=== PATIENT | female | born 1950 | race African-American/Black ===

== ENCOUNTER 2021-04-15 13:14 | Inpatient (IN) ==
[2021-04-15] MEDS ORDERED: SODIUM CHLORIDE 0.9% 1,000 ML IV STA (13:24)
[2021-04-15 13:41] LABS: Basophils % 0.1 % (0.0-0.8); Eosinophils # 0.2 10*3/uL (0.0-0.87); Eosinophils % 0.8 % (0.00-10.9); Hematocrit 26.5 VOL% (35.7-47.0); Hemoglobin 8.1 GM/DL (12.0-16.0); Immature Granulocytes % 1.1 %; Immature Granulocytes Absolute 0.23 #; Lymphocytes # 2.4 10*3/uL (1.4-4.0); Lymphocytes % 11.6 % (21.3-54.2); Mean Corpuscular HGB Conc 30.6 GM/DL (32-36); Mean Corpuscular Volume 71.2 FL (87-102); Mean Platelet Volume 11.8 FL (9.6-12.0); Monocytes % 6.5 % (1.7-12.7); Neutrophils % 79.9 % (38.7-73.9); Platelet Count 450 T/CUMM (130-400); Red Blood Count 3.72 MC/CUMM (3.8-5.5); Red Cell Distribution Width 18.1 % (9.3-17.3); White Blood Count 20.6 T/CUMM (4-12)
[2021-04-15 14:13] LABS: Calcium 6.3 MG/DL (8.5-10.1)
[2021-04-15 14:16] LABS: Potassium 2.3 MMOL/L (3.5-5.1)
[2021-04-15 14:20] LABS: Lymphocytes 13 % (20-55); Segmented Neutrophils 79 % (50-85); Total Cells Counted 100
[2021-04-15 14:21] LABS: Anisocytosis 1+; Hypochromia 1+; Target Cells 1+
[2021-04-15 14:22] LABS: Platelet Estimate Adequate; Polychromasia 1+; Schistocytes Few
[2021-04-15] MEDS ORDERED: POTASSIUM CHLORIDE 20 MEQ TABLET PO STA (14:30)
[2021-04-15] MEDS ORDERED: GLUCAGON 1 MG VIAL IM PRN (15:46)
[2021-04-15] MEDS ORDERED: ACETAMINOPHEN 325 MG TABLET PO PRN (15:46)
[2021-04-15] MEDS ORDERED: DEXTROSE 50% 25 GM/50 ML SYRINGE IV PRN (15:46)
[2021-04-15 17:04] LABS: % Iron Saturation 11.9 % (18-50)
[2021-04-15 17:20] LABS: Bacteria,Urine Many /HPF (Few); Bilirubin,Urine Negative (Negative); Blood, Urine Moderate mg/dL (Negative); Glucose,Urine (UA) Negative (Negative); Hyaline Casts,Urine 1 /LPF (0-3); Ketones,Urine Negative (Negative); Mucus,Urine Occasional /LPF (Occasional); Nitrite,Urine Negative (Negative); Protein,Urine 30 MG/DL; RBC,Urine 4 /HPF (0-4); Squamous Epithelial Cell,Urine Few /HPF (0-10); Urine Appearance CLOUDY (Clear); Urine Color Yellow (Yellow); Urine Specific Gravity 1.006 (1.001-1.035); Urine Urobilinogen < 2.0 EU/DL (<2.0)
[2021-04-15] MEDS ORDERED: POTASSIUM CHLORIDE 20 MEQ TABLET PO ONE (17:30)
[2021-04-15] MEDS: INSULIN LISPRO 100 UNIT/ML SUBCUT SCH (20:16)
[2021-04-15] MEDS: [UNRECOGNIZED DRUG - OTHER] IV SCH (21:51)
[2021-04-15] MEDS: POTASSIUM CHLORIDE IV SCH (21:51)
[2021-04-15] MEDS: SODIUM BICARB IV SCH (21:51)
[2021-04-15] MEDS: metroNIDAZOLE INJ 500 MG/100 ML PREMIX IV SCH (21:52)
[2021-04-16] MEDS: metroNIDAZOLE INJ 500 MG/100 ML PREMIX IV SCH ×3 (03:39→17:29)
[2021-04-16] MEDS: SODIUM BICARB IV SCH ×2 (03:40→13:00)
[2021-04-16] MEDS: POTASSIUM CHLORIDE IV SCH ×2 (03:40→13:00)
[2021-04-16] MEDS: [UNRECOGNIZED DRUG - OTHER] IV SCH ×2 (03:40→13:00)
[2021-04-16] MEDS: ONDANSETRON 4 MG/2 ML VIAL IV PRN ×2 (04:23→20:08)
[2021-04-16 05:47] LABS: Basophils % 0.2 % (0.0-0.8); Eosinophils # 0.1 10*3/uL (0.0-0.87); Eosinophils % 0.5 % (0.00-10.9); Hemoglobin 7.3 GM/DL (12.0-16.0); Immature Granulocytes % 1.4 %; Immature Granulocytes Absolute 0.26 #; Lymphocytes # 2.2 10*3/uL (1.4-4.0); Lymphocytes % 11.3 % (21.3-54.2); Mean Corpuscular HGB Conc 30.4 GM/DL (32-36); Mean Corpuscular Volume 71.9 FL (87-102); Monocytes % 6.8 % (1.7-12.7); Neutrophils % 79.8 % (38.7-73.9); Platelet Count 360 T/CUMM (130-400); Red Blood Count 3.34 MC/CUMM (3.8-5.5); Red Cell Distribution Width 18.1 % (9.3-17.3); White Blood Count 19.1 T/CUMM (4-12)
[2021-04-16 06:03] LABS: Calcium 6.5 MG/DL (8.5-10.1); Osmolality,Calculated 293.5 MOS/KG (273-304); Potassium 2.7 MMOL/L (3.5-5.1)
[2021-04-16] MEDS ORDERED: POTASSIUM BICARB EFFERVESCENT 20 MEQ TAB.EFF PO ONE ×2 (07:30→16:34)
[2021-04-16] MEDS ORDERED: MAGNESIUM SULF RIDER 4 GM/100 ML PREMIX IV ONE (07:30)
[2021-04-16] MEDS ORDERED: PROMETHAZINE 25 MG TABLET PO PRN (07:36)
[2021-04-16] MEDS ORDERED: ALBUTEROL 2.5 MG/3 ML NEB RESP TX PRN (07:36)
[2021-04-16] MEDS ORDERED: traMADol 50 MG TABLET PO PRN (07:36)
[2021-04-16] MEDS ORDERED: FERROUS SULFATE 325 MG TABLET PO SCH (08:00)
[2021-04-16] MEDS ORDERED: DEXTROSE 10% 250 ML BAG IV PRN (09:00)
[2021-04-16] MEDS ORDERED: GABAPENTIN 300 MG CAPSULE PO SCH (09:00)
[2021-04-16] MEDS ORDERED: ERGOCALCIFEROL 50,000 UNIT CAPSULE PO SCH (09:00)
[2021-04-16] MEDS: carvediloL 12.5 MG TABLET PO SCH ×2 (09:59→16:14)
[2021-04-16] MEDS: MAGNESIUM CHLORIDE 64 MG TABLET PO SCH ×3 (09:59→21:15)
[2021-04-16] MEDS: COLESTIPOL 1 GM TABLET PO SCH ×2 (09:59→21:16)
[2021-04-16] MEDS: GABAPENTIN 100 MG CAPSULE PO SCH ×2 (09:59→21:15)
[2021-04-16] MEDS: allopurinoL 300 MG TABLET PO SCH (09:59)
[2021-04-16] MEDS: PANTOPRAZOLE 40 MG VIAL IV SCH (10:00)
[2021-04-16] MEDS: ISOSORBIDE MONONITRATE 60 MG TABLET PO SCH (10:00)
[2021-04-16] MEDS ORDERED: SODIUM CHLORIDE 0.9% 1,000 ML IV PRN (10:11)
[2021-04-16] MEDS: INSULIN LISPRO 100 UNIT/ML SUBCUT SCH ×4 (10:52→21:17)
[2021-04-16] MEDS ORDERED: PROMETHAZINE 25 MG TABLET PO ONE (11:20)
[2021-04-16] MEDS: AZTREONAM 500 MG in SODIUM CHLORIDE 0.9% 100 ML IV SCH ×2 (12:25→16:14)
[2021-04-16] MEDS ORDERED: hydrALAZINE 20 MG/1 ML VIAL IV PRN (14:26)
[2021-04-16] MEDS: AMITRIPTYLINE 50 MG TABLET PO SCH (21:15)
[2021-04-16] MEDS: SIMVASTATIN 20 MG TABLET PO SCH (21:16)
[2021-04-17] MEDS: [UNRECOGNIZED DRUG - OTHER] IV SCH ×3 (01:37→21:09)
[2021-04-17] MEDS: POTASSIUM CHLORIDE IV SCH ×3 (01:37→21:09)
[2021-04-17] MEDS: SODIUM BICARB IV SCH ×3 (01:37→21:09)
[2021-04-17] MEDS: AZTREONAM 500 MG in SODIUM CHLORIDE 0.9% 100 ML IV SCH ×4 (01:38→23:54)
[2021-04-17] MEDS: ONDANSETRON 4 MG/2 ML VIAL IV PRN ×2 (02:04→21:01)
[2021-04-17] MEDS: metroNIDAZOLE INJ 500 MG/100 ML PREMIX IV SCH ×3 (02:04→20:42)
[2021-04-17 06:12] LABS: Basophils % 0.2 % (0.0-0.8); Eosinophils # 0.2 10*3/uL (0.0-0.87); Eosinophils % 1.5 % (0.00-10.9); Hematocrit 21.2 VOL% (35.7-47.0); Hemoglobin 6.5 GM/DL (12.0-16.0); Immature Granulocytes % 0.9 %; Immature Granulocytes Absolute 0.12 #; Lymphocytes # 1.8 10*3/uL (1.4-4.0); Lymphocytes % 13.8 % (21.3-54.2); Mean Corpuscular HGB Conc 30.7 GM/DL (32-36); Mean Corpuscular Volume 71.1 FL (87-102); Monocytes % 7.3 % (1.7-12.7); Neutrophils % 76.3 % (38.7-73.9); Platelet Count 320 T/CUMM (130-400); Red Blood Count 2.98 MC/CUMM (3.8-5.5); White Blood Count 13.1 T/CUMM (4-12)
[2021-04-17 06:33] LABS: Hypochromia 2+; Microcytosis 1+; Platelet Estimate Normal; Target Cells Few
[2021-04-17 06:36] LABS: Calcium 6.5 MG/DL (8.5-10.1); Osmolality,Calculated 291.1 MOS/KG (273-304); Potassium 3.3 MMOL/L (3.5-5.1)
[2021-04-17] MEDS ORDERED: hydrALAZINE 20 MG/1 ML VIAL IV ONE (08:10)
[2021-04-17] MEDS: INSULIN LISPRO 100 UNIT/ML SUBCUT SCH ×4 (08:10→20:57)
[2021-04-17] MEDS ORDERED: POTASSIUM BICARB EFFERVESCENT 20 MEQ TAB.EFF PO ONE (08:15)
[2021-04-17] MEDS ORDERED: MAGNESIUM SULF RIDER 2 GM/50 ML PREMIX IV ONE (08:30)
[2021-04-17] MEDS ORDERED: propofoL 200 MG/20 ML VIAL IV ONE (09:06)
[2021-04-17] MEDS ORDERED: LIDOCAINE 2% 5 ML VIAL ONE (09:06)
[2021-04-17] MEDS: LACTATED RINGERS 1,000 ML IV SCH (09:47)
[2021-04-17] MEDS ORDERED: LACTATED RINGERS 1,000 ML IV SCH (10:00)
[2021-04-17] MEDS: allopurinoL 300 MG TABLET PO SCH (10:33)
[2021-04-17] MEDS: ISOSORBIDE MONONITRATE 60 MG TABLET PO SCH (10:33)
[2021-04-17] MEDS: MAGNESIUM CHLORIDE 64 MG TABLET PO SCH ×3 (10:33→20:56)
[2021-04-17] MEDS: carvediloL 12.5 MG TABLET PO SCH ×2 (10:33→17:04)
[2021-04-17] MEDS: GABAPENTIN 100 MG CAPSULE PO SCH ×2 (10:33→20:56)
[2021-04-17] MEDS: COLESTIPOL 1 GM TABLET PO SCH ×2 (10:34→20:58)
[2021-04-17] MEDS: PANTOPRAZOLE 40 MG VIAL IV SCH (11:42)
[2021-04-17] MEDS ORDERED: SODIUM CHLORIDE 0.9% 1,000 ML IV PRN (12:15)
[2021-04-17] MEDS: FERRIC GLUCONATE COMPLEX 125 MG in SODIUM CHLORIDE 0.9% 100 ML IV SCH (12:50)
[2021-04-17] MEDS: SIMVASTATIN 20 MG TABLET PO SCH (20:54)
[2021-04-17] MEDS: AMITRIPTYLINE 50 MG TABLET PO SCH (23:24)
[2021-04-18] MEDS: metroNIDAZOLE INJ 500 MG/100 ML PREMIX IV SCH ×3 (00:53→17:01)
[2021-04-18] MEDS: ONDANSETRON 4 MG/2 ML VIAL IV PRN ×2 (01:58→23:31)
[2021-04-18 06:37] LABS: Basophils % 0.1 % (0.0-0.8); Eosinophils # 0.2 10*3/uL (0.0-0.87); Eosinophils % 1.7 % (0.00-10.9); Hematocrit 29.3 VOL% (35.7-47.0); Hemoglobin 9.2 GM/DL (12.0-16.0); Immature Granulocytes % 0.9 %; Immature Granulocytes Absolute 0.12 #; Lymphocytes # 2.1 10*3/uL (1.4-4.0); Lymphocytes % 15.8 % (21.3-54.2); Mean Corpuscular HGB Conc 31.4 GM/DL (32-36); Mean Corpuscular Volume 74.9 FL (87-102); Monocytes % 7.5 % (1.7-12.7); Platelet Count 291 T/CUMM (130-400); Red Blood Count 3.91 MC/CUMM (3.8-5.5); Red Cell Distribution Width 18.6 % (9.3-17.3); White Blood Count 13.6 T/CUMM (4-12)
[2021-04-18 06:44] LABS: Calcium 7.7 MG/DL (8.5-10.1); Osmolality,Calculated 286.4 MOS/KG (273-304); Potassium 3.8 MMOL/L (3.5-5.1)
[2021-04-18 07:00] LABS: Anisocytosis 2+; Hypochromia Slight; Platelet Estimate Normal; Target Cells Few
[2021-04-18 07:01] LABS: Helmet Cells Few; Poikilocytosis Slight
[2021-04-18] MEDS: SODIUM BICARB IV SCH ×2 (07:25→23:37)
[2021-04-18] MEDS: POTASSIUM CHLORIDE IV SCH ×2 (07:25→23:37)
[2021-04-18] MEDS: [UNRECOGNIZED DRUG - OTHER] IV SCH ×2 (07:25→23:37)
[2021-04-18] MEDS: INSULIN LISPRO 100 UNIT/ML SUBCUT SCH ×4 (07:55→21:54)
[2021-04-18] MEDS: AZTREONAM 500 MG in SODIUM CHLORIDE 0.9% 100 ML IV SCH ×3 (08:03→23:37)
[2021-04-18] MEDS ORDERED: MAGNESIUM SULF RIDER 2 GM/50 ML PREMIX IV ONE (08:17)
[2021-04-18] MEDS: GABAPENTIN 100 MG CAPSULE PO SCH ×2 (08:42→21:55)
[2021-04-18] MEDS: allopurinoL 300 MG TABLET PO SCH (08:42)
[2021-04-18] MEDS: carvediloL 12.5 MG TABLET PO SCH ×2 (08:42→17:03)
[2021-04-18] MEDS: MAGNESIUM CHLORIDE 64 MG TABLET PO SCH ×3 (08:42→21:55)
[2021-04-18] MEDS: ISOSORBIDE MONONITRATE 60 MG TABLET PO SCH (08:42)
[2021-04-18] MEDS: FERRIC GLUCONATE COMPLEX 125 MG in SODIUM CHLORIDE 0.9% 100 ML IV SCH (08:44)
[2021-04-18] MEDS: PANTOPRAZOLE 40 MG VIAL IV SCH (08:44)
[2021-04-18] MEDS: LACTATED RINGERS 1,000 ML IV SCH (11:15)
[2021-04-18] MEDS: COLESTIPOL 1 GM TABLET PO SCH ×2 (13:01→21:55)
[2021-04-18] MEDS: SIMVASTATIN 20 MG TABLET PO SCH (21:55)
[2021-04-18] MEDS: AMITRIPTYLINE 50 MG TABLET PO SCH (22:02)
[2021-04-19] MEDS: metroNIDAZOLE INJ 500 MG/100 ML PREMIX IV SCH ×3 (00:44→16:45)
[2021-04-19] MEDS: SODIUM BICARB IV SCH (03:26)
[2021-04-19] MEDS: [UNRECOGNIZED DRUG - OTHER] IV SCH (03:26)
[2021-04-19] MEDS: POTASSIUM CHLORIDE IV SCH (03:26)
[2021-04-19] MEDS: VANCOMYCIN 50 MG/ML 60 ML/BOTTLE PO SCH ×4 (06:13→23:39)
[2021-04-19 07:15] LABS: Basophils % 0.2 % (0.0-0.8); Eosinophils # 0.3 10*3/uL (0.0-0.87); Hematocrit 29.5 VOL% (35.7-47.0); Hemoglobin 9.2 GM/DL (12.0-16.0); Immature Granulocytes Absolute 0.12 #; Lymphocytes # 2.4 10*3/uL (1.4-4.0); Lymphocytes % 19.7 % (21.3-54.2); Mean Corpuscular HGB Conc 31.2 GM/DL (32-36); Mean Corpuscular Volume 75.8 FL (87-102); Mean Platelet Volume 11.7 FL (9.6-12.0); Monocytes % 8.3 % (1.7-12.7); Neutrophils % 68.8 % (38.7-73.9); Platelet Count 334 T/CUMM (130-400); Red Blood Count 3.89 MC/CUMM (3.8-5.5); White Blood Count 12.3 T/CUMM (4-12)
[2021-04-19 07:40] LABS: Calcium 7.3 MG/DL (8.5-10.1); Osmolality,Calculated 286.3 MOS/KG (273-304); Potassium 4.1 MMOL/L (3.5-5.1)
[2021-04-19] MEDS: INSULIN LISPRO 100 UNIT/ML SUBCUT SCH ×4 (08:18→22:41)
[2021-04-19] MEDS: carvediloL 12.5 MG TABLET PO SCH ×2 (08:19→16:45)
[2021-04-19] MEDS: COLESTIPOL 1 GM TABLET PO SCH ×2 (08:19→22:41)
[2021-04-19] MEDS: allopurinoL 300 MG TABLET PO SCH (08:19)
[2021-04-19] MEDS: GABAPENTIN 100 MG CAPSULE PO SCH ×2 (08:19→21:39)
[2021-04-19] MEDS: MAGNESIUM CHLORIDE 64 MG TABLET PO SCH ×3 (08:19→21:39)
[2021-04-19] MEDS: ISOSORBIDE MONONITRATE 60 MG TABLET PO SCH (08:19)
[2021-04-19] MEDS: AZTREONAM 500 MG in SODIUM CHLORIDE 0.9% 100 ML IV SCH (08:19)
[2021-04-19] MEDS: PANTOPRAZOLE 40 MG VIAL IV SCH (08:20)
[2021-04-19] MEDS ORDERED: MAGNESIUM SULF RIDER 4 GM/100 ML PREMIX IV ONE (08:22)
[2021-04-19] MEDS: LACTATED RINGERS 1,000 ML IV SCH (11:17)
[2021-04-19] MEDS: FERRIC GLUCONATE COMPLEX 125 MG in SODIUM CHLORIDE 0.9% 100 ML IV SCH (11:17)
[2021-04-19] MEDS ORDERED: cefTRIAXone 1,000 MG in SODIUM CHLORIDE 0.9% 100 ML IV SCH (11:30)
[2021-04-19] MEDS: SIMVASTATIN 20 MG TABLET PO SCH (21:39)
[2021-04-19] MEDS: cephALEXin 500 MG CAPSULE PO SCH (21:39)
[2021-04-19] MEDS: AMITRIPTYLINE 50 MG TABLET PO SCH (21:39)
[2021-04-20] MEDS: metroNIDAZOLE INJ 500 MG/100 ML PREMIX IV SCH ×2 (01:20→08:43)
[2021-04-20] MEDS: ONDANSETRON 4 MG/2 ML VIAL IV PRN (02:34)
[2021-04-20] MEDS: VANCOMYCIN 50 MG/ML 60 ML/BOTTLE PO SCH ×2 (06:32→11:51)
[2021-04-20 06:40] LABS: Basophils % 0.2 % (0.0-0.8); Eosinophils # 0.2 10*3/uL (0.0-0.87); Hematocrit 31.4 VOL% (35.7-47.0); Hemoglobin 9.5 GM/DL (12.0-16.0); Immature Granulocytes % 0.8 %; Immature Granulocytes Absolute 0.09 #; Lymphocytes # 2.4 10*3/uL (1.4-4.0); Lymphocytes % 20.4 % (21.3-54.2); Mean Corpuscular HGB Conc 30.3 GM/DL (32-36); Mean Corpuscular Volume 77.7 FL (87-102); Monocytes % 6.3 % (1.7-12.7); Neutrophils % 70.3 % (38.7-73.9); Platelet Count 252 T/CUMM (130-400); Red Blood Count 4.04 MC/CUMM (3.8-5.5); White Blood Count 11.7 T/CUMM (4-12)
[2021-04-20] MEDS: MAGNESIUM CHLORIDE 64 MG TABLET PO SCH (08:44)
[2021-04-20] MEDS: INSULIN LISPRO 100 UNIT/ML SUBCUT SCH ×2 (08:44→11:51)
[2021-04-20] MEDS: allopurinoL 300 MG TABLET PO SCH (08:44)
[2021-04-20] MEDS: cephALEXin 500 MG CAPSULE PO SCH (08:44)
[2021-04-20] MEDS: GABAPENTIN 100 MG CAPSULE PO SCH (08:44)
[2021-04-20] MEDS: carvediloL 12.5 MG TABLET PO SCH (08:44)
[2021-04-20] MEDS: ISOSORBIDE MONONITRATE 60 MG TABLET PO SCH (08:44)
[2021-04-20] MEDS: PANTOPRAZOLE 40 MG VIAL IV SCH (08:44)
[2021-04-20] MEDS: FERRIC GLUCONATE COMPLEX 125 MG in SODIUM CHLORIDE 0.9% 100 ML IV SCH (09:49)
[2021-04-20] MEDS: LACTATED RINGERS 1,000 ML IV SCH (09:50)
[2021-04-20 10:02] LABS: Tissue Transglutaminase IgA Ab 1.4 U/mL
[2021-04-20 11:22] VITALS: BP 175/80
[2021-04-20] MEDS: COLESTIPOL 1 GM TABLET PO SCH (11:56)
[2021-04-20 21:08] LABS: IgA Serum (MAYO) 439 mg/dL (61 - 356)
== END 2021-04-20 13:46 | disposition home health service (06) | DRG 683 ==
LOC: N.ED 13:14 → SUATTDRO 15:24 → N.EDINP 15:24 → N.3E 17:39
PROVIDERS: ADMIT Internal Medicine; ATTEND Internal Medicine

== ENCOUNTER 2021-12-11 09:52 | Observation (INO) ==
[2021-12-11 11:10] LABS: Basophils % 0.1 % (0.0-0.8); Eosinophils # 0.2 10*3/uL (0.0-0.87); Eosinophils % 3.5 % (0.00-10.9); Hematocrit 22.9 VOL% (35.7-47.0); Hemoglobin 6.5 GM/DL (12.0-16.0); Immature Granulocytes % 0.9 %; Immature Granulocytes Absolute 0.06 #; Lymphocytes # 2.1 10*3/uL (1.4-4.0); Lymphocytes % 30.8 % (21.3-54.2); Mean Corpuscular HGB Conc 28.4 GM/DL (32-36); Mean Corpuscular Volume 78.2 FL (87-102); Mean Platelet Volume 12.4 FL (9.6-12.0); Monocytes # 0.6 10*3/uL (0.11-0.8); Neutrophils % 56.7 % (38.7-73.9); Platelet Count 233 T/CUMM (130-400); Red Blood Count 2.93 MC/CUMM (3.8-5.5); White Blood Count 6.9 T/CUMM (4-12)
[2021-12-11 11:40] LABS: Hypochromia 1+; Platelet Estimate Adequate
[2021-12-11 11:41] LABS: Anisocytosis Slight; Microcytosis Slight
[2021-12-11] MEDS ORDERED: SODIUM CHLORIDE 0.9% 1,000 ML IV PRN (13:46)
[2021-12-11] MEDS ORDERED: PANTOPRAZOLE 40 MG VIAL IV SCH (14:00)
[2021-12-11] MEDS ORDERED: amLODIPine 5 MG TABLET PO SCH (14:00)
[2021-12-11 14:29] LABS: % Iron Saturation 41.4 % (18-50); Ferritin 916.5 ng/mL (8-252)
[2021-12-11] MEDS ORDERED: hydrALAZINE 20 MG/1 ML VIAL IV PRN (16:16)
[2021-12-11] MEDS ORDERED: CETIRIZINE 10 MG TABLET PO PRN (17:22)
[2021-12-11] MEDS: CETIRIZINE 10 MG TABLET PO SCH (18:27)
[2021-12-11] MEDS: DEXAMETHASONE 0.5 MG TABLET PO SCH ×2 (18:27→18:40)
[2021-12-11] MEDS ORDERED: SODIUM CHLORIDE 0.65% NASAL SPRAY 45 ML BOTTLE BOTH NARES PRN (20:26)
[2021-12-11] MEDS ORDERED: FAMOTIDINE 20 MG TABLET PO SCH (21:00)
[2021-12-11] MEDS ORDERED: traMADol 50 MG TABLET PO PRN (21:28)
[2021-12-11] MEDS: ASCORBIC ACID 500 MG TABLET PO SCH (21:44)
[2021-12-11 21:50] LABS: Calcium 6.5 MG/DL (8.5-10.1); Osmolality,Calculated 291.3 MOS/KG (273-304); Potassium 3.9 MMOL/L (3.5-5.1)
[2021-12-12 06:47] LABS: Basophils % 0.1 % (0.0-0.8); Eosinophils # 0.2 10*3/uL (0.0-0.87); Eosinophils % 2.5 % (0.00-10.9); Hematocrit 36.8 VOL% (35.7-47.0); Hemoglobin 11.3 GM/DL (12.0-16.0); Immature Granulocytes % 0.8 %; Immature Granulocytes Absolute 0.07 #; Lymphocytes # 1.9 10*3/uL (1.4-4.0); Lymphocytes % 22.5 % (21.3-54.2); Mean Corpuscular HGB Conc 30.7 GM/DL (32-36); Mean Corpuscular Volume 78.1 FL (87-102); Mean Platelet Volume 10.8 FL (9.6-12.0); Monocytes # 0.8 10*3/uL (0.11-0.8); Monocytes % 9.2 % (1.7-12.7); Neutrophils % 64.9 % (38.7-73.9); Platelet Count 232 T/CUMM (130-400); Red Blood Count 4.71 MC/CUMM (3.8-5.5); Red Cell Distribution Width 17.6 % (9.3-17.3); White Blood Count 8.4 T/CUMM (4-12)
[2021-12-12] MEDS: ASCORBIC ACID 500 MG TABLET PO SCH (08:24)
[2021-12-12] MEDS: CETIRIZINE 10 MG TABLET PO SCH (08:25)
[2021-12-12] MEDS ORDERED: ZINC SULFATE 220 MG CAPSULE PO SCH (09:00)
[2021-12-12] MEDS ORDERED: cloNIDine 0.1 MG TABLET PO SCH ×2 (09:00→15:00)
[2021-12-12] MEDS ORDERED: ISOSORBIDE MONONITRATE 60 MG TABLET PO SCH ×2 (09:00→10:30)
[2021-12-12] MEDS ORDERED: amLODIPine 10 MG TABLET PO SCH (09:00)
[2021-12-12] MEDS ORDERED: DEXAMETHASONE 4 MG TABLET PO SCH (09:00)
[2021-12-12] MEDS ORDERED: CHOLECALCIFEROL 5,000 UNIT TABLET PO SCH (09:00)
[2021-12-12] MEDS ORDERED: traMADol 50 MG TABLET PO PRN (10:09)
[2021-12-12] MEDS ORDERED: hydroCHLOROthiazide 12.5 MG CAPSULE PO SCH (10:30)
[2021-12-12] MEDS ORDERED: BRIMONIDINE/TIMOLOL OPH SOLN 5 ML BOTTLE BOTH EYES SCH (10:30)
[2021-12-12] MEDS ORDERED: carvediloL 25 MG TABLET PO SCH (10:30)
[2021-12-12 11:34] VITALS: BP 148/84
[2021-12-12] MEDS ORDERED: COLESTIPOL 1 GM TABLET PO SCH (13:00)
[2021-12-12] MEDS ORDERED: hydrALAZINE 25 MG TABLET PO SCH (15:00)
[2021-12-12] MEDS ORDERED: MAGNESIUM CHLORIDE 64 MG TABLET PO SCH (15:00)
[2021-12-12] MEDS ORDERED: GABAPENTIN 300 MG CAPSULE PO SCH (21:00)
[2021-12-12] MEDS ORDERED: SIMVASTATIN 20 MG TABLET PO SCH (21:00)
[2021-12-12] MEDS ORDERED: AMITRIPTYLINE 25 MG TABLET PO SCH (21:00)
[2021-12-13] MEDS ORDERED: allopurinoL 300 MG TABLET PO SCH (09:00)
[2021-12-13] MEDS ORDERED: FERROUS SULFATE 325 MG TABLET PO SCH (09:00)
[2022-01-02] MEDS ORDERED: CYANOCOBALAMIN 1000 MCG/1 ML VIAL IM SCH (09:00)
== END 2021-12-12 14:30 | disposition home health service (06) ==
LOC: N.ED 09:52 → N.EDINP 09:52 → N.2W 15:14 → N.3E 18:19
PROVIDERS: ADMIT Internal Medicine; ATTEND Internal Medicine

== ENCOUNTER 2021-12-23 21:12 | Inpatient (IN) ==
[2021-12-23 21:52] LABS: Basophils % 0.2 % (0.0-0.8); Eosinophils # 0.1 10*3/uL (0.0-0.87); Hematocrit 31.4 VOL% (35.7-47.0); Hemoglobin 9.4 GM/DL (12.0-16.0); Immature Granulocytes % 1.7 %; Immature Granulocytes Absolute 0.24 #; Lymphocytes % 14.3 % (21.3-54.2); Mean Corpuscular HGB Conc 29.9 GM/DL (32-36); Mean Corpuscular Volume 80.9 FL (87-102); Monocytes # 1.3 10*3/uL (0.11-0.8); Monocytes % 9.3 % (1.7-12.7); Neutrophils % 73.5 % (38.7-73.9); Platelet Count 291 T/CUMM (130-400); Red Blood Count 3.88 MC/CUMM (3.8-5.5); Red Cell Distribution Width 18.3 % (9.3-17.3)
[2021-12-23 22:10] LABS: Albumin 2.6 G/DL (3.4-5.0); Bilirubin,Total 0.4 MG/DL (0.20-1.00); Calcium 6.4 MG/DL (8.5-10.1); Osmolality,Calculated 305.4 MOS/KG (273-304); Total Protein 7.9 G/DL (6.4-8.2)
[2021-12-24] MEDS ORDERED: methylPREDNISolone SOD SUC 125 MG/2 ML VIAL IV STA (01:00)
[2021-12-24] MEDS ORDERED: SODIUM CHLORIDE 0.9% 500 ML IV STA (01:00)
[2021-12-24] MEDS ORDERED: ASPIRIN 325 MG TABLET PO STA (01:00)
[2021-12-24] MEDS ORDERED: ONDANSETRON 4 MG/2 ML VIAL IV STA (01:00)
[2021-12-24] MEDS ORDERED: ALBUTEROL/IPRATROPIUM 3 ML NEB RESP TX STA (01:00)
[2021-12-24] MEDS ORDERED: MAGNESIUM SULF RIDER 2 GM/50 ML PREMIX IV STA (02:00)
[2021-12-24] MEDS ORDERED: DEXTROSE 50% 25 GM/50 ML VIAL IV PRN (03:03)
[2021-12-24] MEDS ORDERED: GLUCAGON 1 MG VIAL IM PRN (03:03)
[2021-12-24] MEDS ORDERED: ONDANSETRON 4 MG/2 ML VIAL IV PRN (03:03)
[2021-12-24] MEDS ORDERED: DEXTROSE 10% 250 ML BAG IV PRN (03:03)
[2021-12-24] MEDS ORDERED: SODIUM BICARB INJ 50 MEQ in SODIUM CHLORIDE 0.45% 1,000 ML IV SCH (03:30)
[2021-12-24] MEDS ORDERED: SODIUM BICARBONATE 50 MEQ/50 ML VIAL IV ONE (08:20)
[2021-12-24] MEDS ORDERED: SODIUM BICARBONATE 50 MEQ/50 ML VIAL IV SCH (09:00)
[2021-12-24 09:09] LABS: Basophils % 0.1 % (0.0-0.8); Hematocrit 29.8 VOL% (35.7-47.0); Hemoglobin 9.3 GM/DL (12.0-16.0); Immature Granulocytes Absolute 0.29 #; Lymphocytes # 1.1 10*3/uL (1.4-4.0); Lymphocytes % 7.8 % (21.3-54.2); Mean Corpuscular HGB Conc 31.2 GM/DL (32-36); Mean Corpuscular Volume 78.8 FL (87-102); Mean Platelet Volume 11.2 FL (9.6-12.0); Monocytes # 0.2 10*3/uL (0.11-0.8); Monocytes % 1.3 % (1.7-12.7); Neutrophils % 88.8 % (38.7-73.9); Platelet Count 270 T/CUMM (130-400); Red Blood Count 3.78 MC/CUMM (3.8-5.5); Red Cell Distribution Width 18.2 % (9.3-17.3); White Blood Count 14.6 T/CUMM (4-12)
[2021-12-24 09:34] LABS: Calcium 6.2 MG/DL (8.5-10.1); Osmolality,Calculated 309.4 MOS/KG (273-304); Potassium 5.8 MMOL/L (3.5-5.1)
[2021-12-24] MEDS: SODIUM BICARBONATE 650 MG TABLET PO SCH ×3 (10:29→20:48)
[2021-12-24] MEDS: HEPARIN 5,000 UNIT/1 ML VIAL SUBCUT SCH ×2 (10:29→20:48)
[2021-12-24] MEDS: PANTOPRAZOLE 40 MG TABLET PO SCH (10:29)
[2021-12-24] MEDS: INSULIN REGULAR 100 UNIT/ML SUBCUT SCH ×4 (10:29→20:48)
[2021-12-24] MEDS: SODIUM BICARB INJ 50 MEQ in IV BAG 1 EACH IV SCH ×2 (11:45→16:04)
[2021-12-24] MEDS ORDERED: ALBUTEROL 2.5 MG/3 ML NEB RESP TX PRN (11:45)
[2021-12-24] MEDS: COLESTIPOL 1 GM TABLET PO SCH ×3 (12:58→20:48)
[2021-12-24] MEDS: MAGNESIUM CHLORIDE 64 MG TABLET PO SCH ×2 (16:04→20:48)
[2021-12-24] MEDS: cloNIDine 0.1 MG TABLET PO SCH ×2 (16:04→20:49)
[2021-12-24] MEDS: SIMVASTATIN 20 MG TABLET PO SCH (18:42)
[2021-12-24] MEDS: BRIMONIDINE/TIMOLOL OPH SOLN 5 ML BOTTLE BOTH EYES SCH (20:49)
[2021-12-24] MEDS: AMITRIPTYLINE 25 MG TABLET PO SCH (20:49)
[2021-12-24] MEDS: carvediloL 25 MG TABLET PO SCH (20:49)
[2021-12-25 05:13] LABS: Basophils % 0.1 % (0.0-0.8); Hematocrit 25.8 VOL% (35.7-47.0); Hemoglobin 8.1 GM/DL (12.0-16.0); Immature Granulocytes % 1.4 %; Immature Granulocytes Absolute 0.29 #; Lymphocytes # 1.6 10*3/uL (1.4-4.0); Lymphocytes % 7.8 % (21.3-54.2); Mean Corpuscular HGB Conc 31.4 GM/DL (32-36); Mean Platelet Volume 12.3 FL (9.6-12.0); Monocytes % 9.8 % (1.7-12.7); Neutrophils % 80.9 % (38.7-73.9); Platelet Count 287 T/CUMM (130-400); Red Blood Count 3.35 MC/CUMM (3.8-5.5); Red Cell Distribution Width 18.3 % (9.3-17.3); White Blood Count 20.7 T/CUMM (4-12)
[2021-12-25 05:37] LABS: Band Neutrophils 2 % (0-10); Lymphocytes 2 % (20-55); Myelocytes 1 %; Total Cells Counted 100
[2021-12-25 05:38] LABS: Hypochromia 1+; Microcytosis 1+
[2021-12-25 05:51] LABS: Albumin 2.2 G/DL (3.4-5.0); Bilirubin,Total 0.4 MG/DL (0.20-1.00); Calcium 6.9 MG/DL (8.5-10.1); Potassium 4.4 MMOL/L (3.5-5.1); Total Protein 7.1 G/DL (6.4-8.2)
[2021-12-25] MEDS: INSULIN REGULAR 100 UNIT/ML SUBCUT SCH ×4 (08:13→22:34)
[2021-12-25] MEDS ORDERED: SODIUM BICARB INJ 50 MEQ in DEXTROSE 5% NACL 0.45% 1,000 ML IV SCH (09:00)
[2021-12-25] MEDS ORDERED: ERGOCALCIFEROL 50,000 UNIT CAPSULE PO SCH (09:00)
[2021-12-25] MEDS: carvediloL 25 MG TABLET PO SCH ×2 (09:49→22:31)
[2021-12-25] MEDS: PANTOPRAZOLE 40 MG TABLET PO SCH (09:49)
[2021-12-25] MEDS: MAGNESIUM CHLORIDE 64 MG TABLET PO SCH ×3 (09:49→22:31)
[2021-12-25] MEDS: HEPARIN 5,000 UNIT/1 ML VIAL SUBCUT SCH ×2 (09:49→22:36)
[2021-12-25] MEDS: COLESTIPOL 1 GM TABLET PO SCH ×4 (09:49→22:31)
[2021-12-25] MEDS: cloNIDine 0.1 MG TABLET PO SCH ×3 (09:50→22:32)
[2021-12-25] MEDS: BRIMONIDINE/TIMOLOL OPH SOLN 5 ML BOTTLE BOTH EYES SCH ×2 (09:50→22:37)
[2021-12-25] MEDS: SODIUM BICARBONATE 650 MG TABLET PO SCH ×3 (09:50→22:31)
[2021-12-25] MEDS: FERROUS SULFATE 325 MG TABLET PO SCH (09:50)
[2021-12-25] MEDS: SODIUM BICARB INJ 150 MEQ in STERILE WATER INJ 1,000 ML IV SCH (10:03)
[2021-12-25] MEDS: traMADol 50 MG TABLET PO PRN (10:07)
[2021-12-25] MEDS ORDERED: amLODIPine 5 MG TABLET PO SCH (11:45)
[2021-12-25 15:18] LABS: % Iron Saturation 47.6 % (18-50); Ferritin 818.1 ng/mL (8-252)
[2021-12-25] MEDS: SIMVASTATIN 20 MG TABLET PO SCH (18:43)
[2021-12-25] MEDS: AMITRIPTYLINE 25 MG TABLET PO SCH (22:31)
[2021-12-26] MEDS: SODIUM BICARB INJ 150 MEQ in STERILE WATER INJ 1,000 ML IV SCH ×2 (02:33→21:40)
[2021-12-26 05:29] LABS: Basophils % 0.3 % (0.0-0.8); Eosinophils # 0.3 10*3/uL (0.0-0.87); Eosinophils % 2.5 % (0.00-10.9); Hematocrit 25.2 VOL% (35.7-47.0); Immature Granulocytes % 1.1 %; Immature Granulocytes Absolute 0.12 #; Lymphocytes # 2.6 10*3/uL (1.4-4.0); Lymphocytes % 22.7 % (21.3-54.2); Mean Corpuscular HGB Conc 31.7 GM/DL (32-36); Mean Corpuscular Volume 76.6 FL (87-102); Mean Platelet Volume 11.6 FL (9.6-12.0); Monocytes # 0.8 10*3/uL (0.11-0.8); Monocytes % 7.1 % (1.7-12.7); Neutrophils % 66.3 % (38.7-73.9); Platelet Count 257 T/CUMM (130-400); Red Blood Count 3.29 MC/CUMM (3.8-5.5); White Blood Count 11.2 T/CUMM (4-12)
[2021-12-26 05:46] LABS: Calcium 6.7 MG/DL (8.5-10.1)
[2021-12-26] MEDS ORDERED: MAGNESIUM SULF RIDER 4 GM/100 ML PREMIX IV ONE (07:45)
[2021-12-26] MEDS: INSULIN REGULAR 100 UNIT/ML SUBCUT SCH ×4 (10:08→21:28)
[2021-12-26] MEDS: MAGNESIUM CHLORIDE 64 MG TABLET PO SCH ×3 (10:09→21:40)
[2021-12-26] MEDS: HEPARIN 5,000 UNIT/1 ML VIAL SUBCUT SCH ×2 (10:09→21:40)
[2021-12-26] MEDS: COLESTIPOL 1 GM TABLET PO SCH ×4 (10:09→21:38)
[2021-12-26] MEDS: SODIUM BICARBONATE 650 MG TABLET PO SCH ×3 (10:09→21:40)
[2021-12-26] MEDS: traMADol 50 MG TABLET PO PRN ×2 (10:10→21:39)
[2021-12-26] MEDS: cloNIDine 0.1 MG TABLET PO SCH ×3 (10:10→21:39)
[2021-12-26] MEDS: FERROUS SULFATE 325 MG TABLET PO SCH (10:10)
[2021-12-26] MEDS: BRIMONIDINE/TIMOLOL OPH SOLN 5 ML BOTTLE BOTH EYES SCH ×2 (10:11→21:40)
[2021-12-26] MEDS: carvediloL 25 MG TABLET PO SCH ×2 (10:11→21:39)
[2021-12-26] MEDS: PANTOPRAZOLE 40 MG TABLET PO SCH (10:11)
[2021-12-26] MEDS: SIMVASTATIN 20 MG TABLET PO SCH (19:21)
[2021-12-26] MEDS: AMITRIPTYLINE 25 MG TABLET PO SCH (21:38)
[2021-12-27 04:40] LABS: Basophils % 0.2 % (0.0-0.8); Eosinophils # 0.3 10*3/uL (0.0-0.87); Eosinophils % 2.4 % (0.00-10.9); Hemoglobin 8.3 GM/DL (12.0-16.0); Immature Granulocytes Absolute 0.12 #; Lymphocytes # 2.1 10*3/uL (1.4-4.0); Lymphocytes % 17.6 % (21.3-54.2); Mean Corpuscular HGB Conc 31.9 GM/DL (32-36); Mean Corpuscular Volume 75.4 FL (87-102); Mean Platelet Volume 11.4 FL (9.6-12.0); Monocytes % 8.4 % (1.7-12.7); Neutrophils % 70.4 % (38.7-73.9); Platelet Count 277 T/CUMM (130-400); Red Blood Count 3.45 MC/CUMM (3.8-5.5); Red Cell Distribution Width 17.6 % (9.3-17.3)
[2021-12-27 05:03] LABS: Calcium 7.2 MG/DL (8.5-10.1); Osmolality,Calculated 301.4 MOS/KG (273-304); Potassium 3.9 MMOL/L (3.5-5.1)
[2021-12-27] MEDS ORDERED: MAGNESIUM SULF RIDER 2 GM/50 ML PREMIX IV ONE (07:24)
[2021-12-27] MEDS: INSULIN REGULAR 100 UNIT/ML SUBCUT SCH ×2 (08:51→12:48)
[2021-12-27] MEDS: COLESTIPOL 1 GM TABLET PO SCH ×2 (08:52→12:47)
[2021-12-27] MEDS: BRIMONIDINE/TIMOLOL OPH SOLN 5 ML BOTTLE BOTH EYES SCH (08:52)
[2021-12-27] MEDS: MAGNESIUM CHLORIDE 64 MG TABLET PO SCH (08:53)
[2021-12-27] MEDS: carvediloL 25 MG TABLET PO SCH (08:53)
[2021-12-27] MEDS: PANTOPRAZOLE 40 MG TABLET PO SCH (08:53)
[2021-12-27] MEDS: FERROUS SULFATE 325 MG TABLET PO SCH (08:53)
[2021-12-27] MEDS: cloNIDine 0.1 MG TABLET PO SCH (08:53)
[2021-12-27] MEDS: HEPARIN 5,000 UNIT/1 ML VIAL SUBCUT SCH (08:54)
[2021-12-27] MEDS ORDERED: hydrALAZINE 25 MG TABLET PO SCH (09:00)
[2021-12-27] MEDS ORDERED: amLODIPine 10 MG TABLET PO SCH (09:00)
[2021-12-27] MEDS: SODIUM BICARBONATE 650 MG TABLET PO SCH (09:04)
[2021-12-27] MEDS: traMADol 50 MG TABLET PO PRN (09:05)
[2021-12-27] MEDS ORDERED: ACETAMINOPHEN 325 MG TABLET PO PRN (10:44)
[2021-12-27] MEDS ORDERED: BUTALBITAL/ACETAMIN/CAFFEINE 50-325-40 MG TABLET PO PRN (10:44)
[2021-12-27] MEDS ORDERED: ISOSORBIDE MONONITRATE 60 MG TABLET PO SCH (11:00)
[2021-12-27 15:13] VITALS: BP 151/69
== END 2021-12-27 15:33 | disposition home or self-care (01) | DRG 683 ==
LOC: N.ED 21:12 → N.TELEN 12-24 03:04
PROVIDERS: ADMIT Internal Medicine; ATTEND Internal Medicine